=== PATIENT | female | born 1955 | race Caucasian/White ===

== ENCOUNTER → 2016-06-15 | Outpatient (CLI) | payer MEDICARE, MEDICAID ==
[~2016-06-15] MED LIST: BACTRIM DS 8001 TAB PO; BENADRYL ALLERG25 M1 PO; BROMFED DM COU118 ML PO; CHEWABLE ASPIRI81 MG PO; CHOLESTEROL MED?; CIPRO 500MG TA500 MG PO; DIAZEPAM5 MG PO; DICLOFENAC SOD75 MG PO; FLEXERIL10 MG PO; LORTAB 5/500 501 TAB PO; MEDROL 4MG. DOSE4 MG PO; MELOXICAM15 MG PO; NEXIUM40 MG PO; NIASPAN500 MG PO; PANTOPRAZOLE SO40 MG PO; PRILOSEC20 M1 PO; ROBAXIN-750750 MG PO; VICODIN 5/500 T1 TAB PO; ZITHROMAX Z-PA250 M2 PO
[2016-06-15 10:09] LABS: BUN 19 mg/dL (7-18)
[2016-06-15 10:22] LABS: GFR (ESTIMATED) 86 ML/MIN (59-)
== END ==
LOC: LAB 07:46
PROVIDERS: Nurse Practitioner Family
DX: E78.5 Hyperlipidemia, unspecified (principal); E53.8 Deficiency of other specified B group vitamins; I10 Essential (primary) hypertension

== ENCOUNTER → 2016-08-31 | Outpatient (CLI) | payer MEDICARE, MEDICAID ==
[2016-08-31 09:14] LABS: BUN 16 mg/dL (7-18)
[2016-08-31 09:15] LABS: GFR (ESTIMATED) 74 ML/MIN (59-)
== END ==
LOC: LAB 07:41
PROVIDERS: Internal Medicine Cardiovascular Disease
DX: I10 Essential (primary) hypertension (principal); E78.5 Hyperlipidemia, unspecified

== ENCOUNTER → 2017-01-23 | Outpatient (CLI) | payer MEDICARE, MEDICAID ==
[~2017-01-23] MED LIST changes: +IBUPROFEN800 MG PO; +LOSARTAN POTASS50 MG PO
[2017-01-23 09:33] LABS: HEMOGLOBIN 13.8 g/dL (12.2-16.2)
[2017-01-23 09:34] LABS: LYMPH # 2.2 K/mm3 (0.7-4.5); LYMPH % 30.3 % (10-50.0)
[2017-01-23 09:47] LABS: BUN 15 mg/dL (7-18)
[2017-01-23 09:48] LABS: GFR (ESTIMATED) 73 ML/MIN (59-)
== END ==
LOC: LAB 07:18
PROVIDERS: Nurse Practitioner Family
DX: R53.83 Other fatigue (principal); Z79.899 Other long term (current) drug therapy

== ENCOUNTER → 2017-02-01 | Outpatient (CLI) | payer MEDICARE, MEDICAID ==
--- NOTE | 2017-02-03 16:41 | RADIOLOGY REPORT PS360 ---
US PELVIS-TRANSVAGINAL ONLY COMPARISON: Transvaginal ultrasound pelvis 06/04/2007 HISTORY: Pelvic pain TECHNIQUE: Transvaginal imaging FINDINGS: The uterus is normal in size and shows homogeneous echogenicity. The endometrial echo is borderline thickened. There may be couple of small calcifications in the cervix. The right ovary is normal in size with homogeneous echogenicity. The left ovary appears normal as well. There is no cul-de-sac fluid. IMPRESSION: Borderline thickening of the endometrium which could be secondary to mild endometrial hyperplasia or secondary to proliferative phase of the menstrual cycle, other nonacute findings as described
== END ==
LOC: RAD 01-28 14:30
DX: R10.2 Pelvic and perineal pain (principal); N94.89 Other specified conditions associated with female genital organs and menstrual cycle

== ENCOUNTER → 2017-03-11 | Outpatient (CLI) | payer MEDICARE, MEDICAID ==
[2017-03-11 09:29] LABS: BUN 14 mg/dL (7-18)
[2017-03-11 09:30] LABS: GFR (ESTIMATED) 73 ML/MIN (59-)
--- NOTE | 2017-03-11 18:35 | RADIOLOGY REPORT PS360 ---
CT ABD PELVIS W/WO CONTRAST INDICATION: Left lower quadrant pain radiating into the legs LLQ PAIN ORDERING PHYSICIAN: Duong Flower MD PATIENT AGE: 61 years COMPARISON: 02/13/2012 TECHNIQUE: Axial images are obtained without without and with 75 mL's of Isovue-370. Oral contrast also utilized. Sagittal and coronal reformatted images are reviewed as well. FINDINGS: The lung bases are clear. There is a small hiatal hernia There has been a prior cholecystectomy. No biliary dilatation. The liver, spleen, adrenal glands, and pancreas have unremarkable appearance. There is a nonobstructing 3 mm stone in the lower pole the left kidney. No renal mass or hydronephrosis. No ureteral calculi. Scattered small lymph nodes are present in the retroperitoneum unchanged. Unremarkable appendix. No evidence of diverticulitis. No pelvic mass or abnormal fluid collection or focal inflammatory change evident. No abdominal wall hernias. No inguinal mass or adenopathy. No acute bony anomalies. IMPRESSION: 1. Nonobstructing left nephrolithiasis. 2. Small hiatal hernia. 3. Otherwise negative CT abdomen and pelvis IMPRESSION:
== END ==
LOC: RAD 08:52
PROVIDERS: Nurse Practitioner Obstetrics & Gynecology
DX: R10.32 Left lower quadrant pain (principal); R10.2 Pelvic and perineal pain
CPT/HCPCS: Q9967